=== PATIENT | male | born 1950 | race Caucasian/White ===

== ENCOUNTER 2023-12-24 16:24 | Inpatient (IN) | payer MEDICARE, OTHER ==
[~2023-12-24] VITALS: Ht 182.9 cm; Wt 64.5 kg
[2023-12-24] MEDS: ALBUTEROL SULF 2.5 MG/0.5ML(0.5%) NEB SOLN NEB ONE (16:52)
[2023-12-24] MEDS: IPRATROPIUM BROM 0.5 MG/2.5ML INH SOL NEB ONE (16:52)
[2023-12-24] MEDS ORDERED: AZITHROMYCIN 500MG/ 250ML 250 ML IV ONE (17:00)
[2023-12-24] MEDS: SODIUM CHLORIDE 0.9% 2,000 ML IV ONE (17:00)
[2023-12-24] MEDS: cefTRIAXone 1GM/50ML D5W 50 ML IV ONE (17:12)
[2023-12-24 17:15] LABS: Alanine Aminotransferase 15 U/L (7-40); Alkaline Phosphatase 132 U/L (46-116); Anion Gap 10 (5-15); BUN/Creatinine Ratio 36.2 (10.0-20.0); Basophils # (auto) 0.1 10 ^3/uL (0-0.2); Blood Urea Nitrogen 68 mg/dL (9-23); Calcium 9.7 mg/dL (8.7-10.4); Carbon Dioxide 24 mmol/L (20-30); Chloride 112 mmol/L (98-107); Eosinophils # (auto) 0.1 10 ^3/uL (0-0.8); Glucose 381 mg/dL (74-106); Hemoglobin 13.8 g/dL (13.5-17.5); Monocytes # (auto) 0.6 10 ^3/uL (0-1.3); Nucleated Red Blood Cells % 0.1 %; Sodium 146 mmol/L (136-145)
[2023-12-24] MEDS: DexAMETHasone SOD PHOS 10MG/1ML VIAL INJ IV ONE (17:15)
[2023-12-24 17:16] LABS: Albumin 3.5 g/dL (3.2-4.8); Aspartate Aminotransferase 14 U/L (13-40); Bilirubin, Total 0.5 mg/dL (0.2-1.0); Total Protein 6.7 g/dL (5.7-8.2)
[2023-12-24 17:17] LABS: Basophils % (auto) 0.3 % (0.0-2.0); Eosinophils % (auto) 0.2 % (0.0-7.0); Hematocrit 42.6 % (41.0-53.0); Lymphocytes # (auto) 0.6 10 ^3/uL (0.4-5.4); Lymphocytes % (auto) 2.9 % (10.0-50.0); Mean Corpuscular Hemoglobin 29.3 pg (28.0-32.0); Mean Corpuscular Hgb Conc. 32.4 g/dL (32.0-36.0); Mean Corpuscular Volume 90.3 fL (80.0-100.0); Monocytes % (auto) 2.9 % (0.0-12.0); Neutrophils # (auto) 19.4 10 ^3/uL (1.6-8.6); Neutrophils % (auto) 93.7 % (37.0-80.0); Red Blood Cells 4.72 10^6/uL (4.5-5.90); Red Cell Distribution Width 14.3 % (11.8-14.3); White Blood Cell 20.7 10^3/uL (4.4-10.8)
[2023-12-24 17:34] LABS: Potassium 6.1 mmol/L (3.5-5.1)
[2023-12-24 17:41] VITALS: PULSE 125; RESP 50; O2SAT 90
[2023-12-24 18:11] LABS: Lactic Acid w/Reflex 3.5 mmol/L (0.4-2.0)
[2023-12-24] MEDS: MORPHINE SULFATE 4 MG/ML SYR/VIAL IV PRN (18:32)
[2023-12-24 19:30] VITALS: PULSE 102; RESP 30; O2SAT 98
[2023-12-24] MEDS: ACETAMINOPHEN 650 MG RECT SUPP PR PRN (20:48)
[2023-12-24] MEDS ORDERED: ONDANSETRON HCL 4 MG/2 ML VIAL IV PRN (21:45)
[2023-12-24] MEDS: SODIUM CHLORIDE 0.9% 1,000 ML IV SCH (21:54)
[2023-12-24] MEDS: HYDROmorphone HCL 2 MG/ML VL/or syr IV PRN (21:59)
[2023-12-25] VITALS (8 sets, daily range): BP systolic 91–101; BP diastolic 12–62; PULSE 69–99; RESP 20–37; TEMP 97.3–99.7; O2SAT 72–99
[2023-12-25 06:38] LABS: Basophils # (auto) 0 10 ^3/uL (0-0.2); Eosinophils # (auto) 0 10 ^3/uL (0-0.8); Monocytes # (auto) 0.4 10 ^3/uL (0-1.3)
[2023-12-25 06:42] LABS: Basophils % (auto) 0.2 % (0.0-2.0); Hematocrit 40.6 % (41.0-53.0); Hemoglobin 12.6 g/dL (13.5-17.5); Lymphocytes # (auto) 0.5 10 ^3/uL (0.4-5.4); Lymphocytes % (auto) 3.6 % (10.0-50.0); Mean Corpuscular Hemoglobin 29.7 pg (28.0-32.0); Mean Corpuscular Hgb Conc. 31.1 g/dL (32.0-36.0); Mean Corpuscular Volume 95.7 fL (80.0-100.0); Monocytes % (auto) 2.7 % (0.0-12.0); Neutrophils # (auto) 13.2 10 ^3/uL (1.6-8.6); Neutrophils % (auto) 93.5 % (37.0-80.0); Red Blood Cells 4.24 10^6/uL (4.5-5.90); Red Cell Distribution Width 15.8 % (11.8-14.3); White Blood Cell 14.1 10^3/uL (4.4-10.8)
[2023-12-25] MEDS: cefTRIAXone 1GM/50ML D5W 50 ML IV ONE (10:44)
[2023-12-25 11:19] LABS: Lactic Acid w/Reflex 3.2 mmol/L (0.4-2.0)
[2023-12-25] MEDS: AZITHROMYCIN 500MG/ 250ML 250 ML IV ONE (11:47)
[2023-12-25] MEDS: IPRATROPIUM BROM 0.5 MG/2.5ML INH SOL NEB SCH (11:51)
[2023-12-25] MEDS: LEVALBUTEROL HCL 1.25 MG/3 ML NEB NEB SCH (11:52)
[2023-12-25 12:26] LABS: Chloride 109 mmol/L (98-107)
[2023-12-25 12:28] LABS: Anion Gap 14 (5-15); Carbon Dioxide 18 mmol/L (20-30)
[2023-12-25 12:29] LABS: Calcium 9.2 mg/dL (8.7-10.4)
[2023-12-25 12:34] LABS: Alkaline Phosphatase 110 U/L (46-116); BUN/Creatinine Ratio 27.6 (10.0-20.0)
[2023-12-25 12:35] LABS: Alanine Aminotransferase 16 U/L (7-40); Albumin 3.5 g/dL (3.2-4.8); Aspartate Aminotransferase 13 U/L (13-40)
[2023-12-25 12:36] LABS: Bilirubin, Total 0.3 mg/dL (0.2-1.0); Total Protein 6.9 g/dL (5.7-8.2)
[2023-12-25 12:41] LABS: Sodium 141 mmol/L (136-145)
[2023-12-25 12:45] LABS: Blood Urea Nitrogen 94 mg/dL (9-23); Glucose 816 mg/dL (74-106)
[2023-12-25 12:53] LABS: Magnesium 2.1 mg/dL (1.6-2.6)
[2023-12-25 12:54] LABS: Phosphorus 8.5 mg/dL (2.4-5.1)
[2023-12-25] MEDS: MORPHINE SULFATE INJ 2 MG/ml SYRG IV PRN (14:36)
[2023-12-25] MEDS: ALBUTEROL SULF 2.5 MG/0.5ML(0.5%) NEB SOLN NEB ONE (15:53)
[2023-12-25] MEDS: SODIUM BICARB 8.4% 50Meq/50ml SYR INJ IV ONE (16:27)
[2023-12-25] MEDS ORDERED: TEMA30CA PO (18:40)
[2023-12-25] MEDS ORDERED: ASPI-543 PO (18:40)
[2023-12-25] MEDS ORDERED: METF-370 PO (18:40)
[2023-12-25] MEDS ORDERED: POTA-220 PO (18:40)
[2023-12-25] MEDS ORDERED: QUET100T47 PO (18:40)
[2023-12-25] MEDS ORDERED: DIPH2.5T73 PO (18:40)
[2023-12-25] MEDS ORDERED: AMLO1TAB22 PO (18:40)
[2023-12-25] MEDS ORDERED: HYDR-4902 PO (18:40)
[2023-12-26] VITALS (13 sets, daily range): BP systolic 79–117; BP diastolic 13–68; PULSE 81–92; RESP 18–32; TEMP 97.1–98.1; O2SAT 63–98
[2023-12-26] MEDS: cefTRIAXone 1GM/50ML D5W 50 ML IV SCH (09:01)
[2023-12-26] MEDS: AZITHROMYCIN 500MG/ 250ML 250 ML IV SCH (10:07)
[2023-12-26] MEDS: LORazepam 2MG/ML-1ML VIAL IV PRN (11:28)
[2023-12-26 22:44] LABS: Urine Bacteria FEW /hpf (None Seen); Urine Blood Negative /uL (Negative); Urine Clarity Clear (Clear); Urine Color Yellow (Yellow); Urine Protein, UAD 1+ (Negative); Urine Specific Gravity 1.017 (1.001-1.035); Urine Urobilinogen Normal (Negative); Urine WBC 1 /hpf (0 - 3)
[2023-12-26 22:47] LABS: Amphetamine Screen, Urine Neg (NEGATIVE); Barbiturate Scree,Urine Neg (NEGATIVE); Benzodiazephine Screen, Urine Pos (NEGATIVE); Cannabinoid Screen, Urine Neg (NEGATIVE); Cocaine Screen, Urine Neg (NEGATIVE); Opiate Scree,Urine Pos (NEGATIVE); Phencyclidine Screen, Urine Neg (NEGATIVE)
[2023-12-27] VITALS (8 sets, daily range): BP systolic 26–130; BP diastolic 14–60; PULSE 78–85; RESP 16–28; TEMP 97–98; O2SAT 89–94
[2023-12-27] MEDS: MORPHINE SULFATE 4 MG/ML SYR/VIAL IV PRN (13:30)
== END 2023-12-27 19:35 | disposition hospice, home (50) | DRG 871 ==
LOC: ER 16:24 → EDBD 16:24 → OVERFLOW 21:46 → CENTRAL 12-25 14:27
PROVIDERS: ADMIT Internal Medicine; ATTEND Internal Medicine
DX: A41.9 Sepsis, unspecified organism (principal); G93.41 Metabolic encephalopathy; J96.00 Acute respiratory failure, unspecified whether with hypoxia or hypercapnia; N17.0 Acute kidney failure with tubular necrosis; J15.69 Pneumonia due to other Gram-negative bacteria; E87.0 Hyperosmolality and hypernatremia; Z66 Do not resuscitate; E11.9 Type 2 diabetes mellitus without complications; E87.5 Hyperkalemia; R62.7 Adult failure to thrive; I48.0 Paroxysmal atrial fibrillation; F03.90 Unspecified dementia, unspecified severity, without behavioral disturbance, psychotic disturbance, mood disturbance, and anxiety; Z51.5 Encounter for palliative care; Z86.73 Personal history of transient ischemic attack (TIA), and cerebral infarction without residual deficits
CPT/HCPCS: 36415; 71045; 80053; 80061; 80307; 81001; 82140; 82306; 82607; 83036; 83605; 83690; 83735; 84100; 84443; 85025; 87040; 87086; 94640; 96365; G0378; J1100